=== PATIENT | male | born 1970 | race Asian ===

== ENCOUNTER 2021-02-16 09:16 | Inpatient (IN) | payer MEDICAID, OTHER ==
[~2021-02-16] VITALS: Ht 170.2 cm; Wt 49.5 kg
[2021-02-16] MEDS ORDERED: MORPHINE SULFATE 4 MG/ML CPJ (NOT FOR IM USE) IV STA (09:46)
[2021-02-16 10:02] LABS: HEMATOCRIT. 39.5 % (42.0-52.0); HEMOGLOBIN. 12.3 g/dL (14.0-18.0); MEAN CORPUSCULAR HEMOGLOBIN 24.6 pg (28.0-32.0); MEAN CORPUSCULAR VOLUME 78.7 fL (80.0-94.0); MEAN PLATELET VOLUME 7.9 fl (7.4-10.4); PLATELET 208 x1000/uL (130-400); RED BLOOD CELL COUNT 5.02 mill/uL (4.7-6.1); RED CELL DISTRIBUTION WIDTH 24.4 % (11.6-14.6)
[2021-02-16 10:07] LABS: CHLORIDE 98 mEq/L (98-107)
[2021-02-16 10:36] LABS: PLATELET ESTIMATE NORMAL
[2021-02-16] MEDS ORDERED: FUROSEMIDE 40MG/4ML VIAL IVP ONE (11:00)
[2021-02-16] MEDS ORDERED: MORPHINE SULFATE 2 MG/ML CPJ (NOT FOR IM USE) IV SCH (14:45)
[2021-02-16 16:09] VITALS: BP 116/85
[2021-02-16 16:36] VITALS: BP 116/85
[2021-02-16] MEDS ORDERED: ACETAMINOPHEN 325MG TABLET PO PRN (18:00)
[2021-02-16] MEDS ORDERED: LISINOPRIL 10MG TABLET PO SCH (18:00)
[2021-02-16] MEDS ORDERED: MORPHINE SULFATE 2 MG/ML CPJ (NOT FOR IM USE) IV PRN (18:00)
[2021-02-16] MEDS: ISOSORBIDE MONONITRATE 30MG TABLET SR 24HR PO SCH (18:10)
[2021-02-16] MEDS: ASPIRIN 81MG EC TABLET PO SCH (18:10)
[2021-02-16] MEDS: ENOXAPARIN 40MG/0.4ML SYR SUBCUT SCH (19:24)
[2021-02-16 19:53] VITALS: BP 116/91
[2021-02-16] MEDS: FAMOTIDINE 20MG TABLET PO SCH (21:27)
[2021-02-16] MEDS: CARVEDILOL 3.125 MG TABLET PO SCH (21:27)
[2021-02-16] MEDS: FUROSEMIDE 40MG/4ML VIAL IVP SCH (21:27)
[2021-02-16] MEDS: LISINOPRIL 10MG TABLET PO SCH (21:27)
[2021-02-17] VITALS: BP 114/77
[2021-02-17 04:00] VITALS: BP 101/65
[2021-02-17 08:00] VITALS: BP 114/82
[2021-02-17] MEDS: ENOXAPARIN 40MG/0.4ML SYR SUBCUT SCH (09:04)
[2021-02-17] MEDS: ASPIRIN 81MG EC TABLET PO SCH (09:05)
[2021-02-17] MEDS: CARVEDILOL 3.125 MG TABLET PO SCH ×2 (09:05→21:16)
[2021-02-17] MEDS: FUROSEMIDE 40MG/4ML VIAL IVP SCH ×2 (09:06→21:16)
[2021-02-17] MEDS: ISOSORBIDE MONONITRATE 30MG TABLET SR 24HR PO SCH (09:06)
[2021-02-17] MEDS: LISINOPRIL 10MG TABLET PO SCH (09:06)
[2021-02-17] MEDS: FAMOTIDINE 20MG TABLET PO SCH ×2 (09:08→21:16)
[2021-02-17] MEDS ORDERED: HYDROCODONE/ACETAMINOPHEN 5/325MG TABLET PO PRN (09:45)
[2021-02-17] MEDS ORDERED: ONDANSETRON HCL 4MG/2ML INJ IV PRN (09:45)
[2021-02-17] MEDS ORDERED: MAGNESIUM/ALUMINUM HYDROXIDE/SIMETHICONE 30ML UDC PO PRN (09:45)
[2021-02-17] MEDS ORDERED: CLONIDINE 0.1MG TABLET PO PRN (09:45)
[2021-02-17] MEDS ORDERED: DOCUSATE SODIUM 100MG CAPSULE PO PRN (09:45)
[2021-02-17] MEDS ORDERED: IPRATROPIUM/ALBUTEROL 0.5-3(2.5)MG/3ML NEB HHN PRN (09:45)
[2021-02-17] MEDS ORDERED: NALOXONE HCL 0.4MG/ML VIAL IV PRN (10:00)
[2021-02-17 12:21] VITALS: BP 109/80
[2021-02-17 15:01] LABS: *AMPHETAMINES SCREEN URINE NEGATIVE (NEGATIVE); *BARBITURATES SCREEN URINE NEGATIVE (NEGATIVE); *BENZODIAZEPINES SCREEN URINE NEGATIVE (NEGATIVE); *COCAINE SCREEN URINE NEGATIVE (NEGATIVE); METHADONE URINE SCREEN NEGATIVE (NEGATIVE); OPIATES URINE SCREEN NEGATIVE (NEGATIVE)
[2021-02-17 15:02] LABS: CANNABINOID URINE SCREEN NEGATIVE (NEGATIVE); PHENCYCLIDINE URINE SCREEN NEGATIVE (NEGATIVE)
[2021-02-17 16:35] VITALS: BP 133/97
[2021-02-17 20:00] VITALS: BP 114/57
[2021-02-18] VITALS: BP 111/80
[2021-02-18 04:00] VITALS: BP 97/57
[2021-02-18 05:02] LABS: BASOPHILS % 0.9 % (0.0-2.0); EOSINOPHILS % 0.1 % (0.0-5.0); HEMATOCRIT. 37.2 % (42.0-52.0); LYMPHOCYTES % 20.4 % (20.0-50.0); MEAN CORPUSCULAR HEMOGLOBIN 24.9 pg (28.0-32.0); MEAN CORPUSCULAR VOLUME 77.6 fL (80.0-94.0); MEAN PLATELET VOLUME 8.8 fl (7.4-10.4); MONOCYTES % 6.7 % (2.0-8.0); NEUTROPHILS % 71.9 % (40.0-76.0); PLATELET 206 x1000/uL (130-400); RED CELL DISTRIBUTION WIDTH 24.9 % (11.6-14.6)
[2021-02-18 05:09] LABS: CHLORIDE 101 mEq/L (98-107)
[2021-02-18 05:15] LABS: PHOSPHORUS 2.8 mg/dL (2.5-4.9)
[2021-02-18 05:16] LABS: LDL CHOLESTEROL 65 mg/dL (5-100)
[2021-02-18 05:17] LABS: HDL CHOLESTEROL 14 mg/dL (40-59)
[2021-02-18 05:18] LABS: T4 FREE 1.37 ng/dL (0.76-1.46)
[2021-02-18 08:00] VITALS: BP 111/75
[2021-02-18] MEDS: FUROSEMIDE 40MG/4ML VIAL IVP SCH ×2 (08:54→21:11)
[2021-02-18] MEDS: FAMOTIDINE 20MG TABLET PO SCH ×2 (08:55→21:12)
[2021-02-18] MEDS: ISOSORBIDE MONONITRATE 30MG TABLET SR 24HR PO SCH (08:55)
[2021-02-18] MEDS: CARVEDILOL 3.125 MG TABLET PO SCH (08:55)
[2021-02-18] MEDS: ASPIRIN 81MG EC TABLET PO SCH (08:56)
[2021-02-18] MEDS: LISINOPRIL 10MG TABLET PO SCH (09:00)
[2021-02-18] MEDS: ENOXAPARIN 40MG/0.4ML SYR SUBCUT SCH (09:06)
[2021-02-18 12:00] VITALS: BP 122/89
[2021-02-18 16:00] VITALS: BP 112/73
[2021-02-18 20:00] VITALS: BP 116/83
[2021-02-18] MEDS: LORAZEPAM 1MG TABLET PO PRN (20:02)
[2021-02-18] MEDS: HYDRALAZINE HCL 25MG TABLET PO SCH (21:11)
[2021-02-18] MEDS: CARVEDILOL 6.25 MG TABLET PO SCH (21:12)
[2021-02-19] VITALS: BP 101/78
[2021-02-19 04:00] VITALS: BP 102/70
[2021-02-19] MEDS: LORAZEPAM 1MG TABLET PO PRN (05:25)
[2021-02-19 08:00] VITALS: BP 101/70
[2021-02-19 08:55] LABS: BASOPHILS % 3.4 % (0.0-2.0); EOSINOPHILS % 0.5 % (0.0-5.0); HEMATOCRIT. 37.5 % (42.0-52.0); LYMPHOCYTES % 19.5 % (20.0-50.0); MEAN CORPUSCULAR HEMOGLOBIN 24.6 pg (28.0-32.0); MEAN CORPUSCULAR VOLUME 77.1 fL (80.0-94.0); MEAN PLATELET VOLUME 7.7 fl (7.4-10.4); MONOCYTES % 9.3 % (2.0-8.0); NEUTROPHILS % 67.3 % (40.0-76.0); PLATELET 208 x1000/uL (130-400); RED BLOOD CELL COUNT 4.87 mill/uL (4.7-6.1); RED CELL DISTRIBUTION WIDTH 24.8 % (11.6-14.6)
[2021-02-19] MEDS: ISOSORBIDE MONONITRATE 30MG TABLET SR 24HR PO SCH (09:00)
[2021-02-19] MEDS: CARVEDILOL 6.25 MG TABLET PO SCH (09:00)
[2021-02-19] MEDS: HYDRALAZINE HCL 25MG TABLET PO SCH (09:00)
[2021-02-19] MEDS: ASPIRIN 81MG EC TABLET PO SCH (09:08)
[2021-02-19] MEDS: FUROSEMIDE 40MG/4ML VIAL IVP SCH (09:08)
[2021-02-19] MEDS: ENOXAPARIN 40MG/0.4ML SYR SUBCUT SCH (09:08)
[2021-02-19] MEDS: FAMOTIDINE 20MG TABLET PO SCH (09:08)
== END 2021-02-19 12:00 | disposition left against medical advice (07) | DRG 194 ==
LOC: ER 09:16 → 6WST 13:57 → ENRESERV 14:55
PROVIDERS: ADMIT Internal Medicine; ATTEND Internal Medicine
DX: I50.9 Heart failure, unspecified (principal); I27.20 Pulmonary hypertension, unspecified; E44.0 Moderate protein-calorie malnutrition; I42.9 Cardiomyopathy, unspecified; E87.1 Hypo-osmolality and hyponatremia; R16.2 Hepatomegaly with splenomegaly, not elsewhere classified; F12.90 Cannabis use, unspecified, uncomplicated; F41.9 Anxiety disorder, unspecified; Z91.19 Patient's noncompliance with other medical treatment and regimen; I34.0 Nonrheumatic mitral (valve) insufficiency; Z87.891 Personal history of nicotine dependence; K76.9 Liver disease, unspecified; Z68.1 Body mass index [BMI] 19.9 or less, adult; Z53.29 Procedure and treatment not carried out because of patient's decision for other reasons; R79.89 Other specified abnormal findings of blood chemistry; R07.89 Other chest pain
CPT/HCPCS: 36415; 71045; 76700; 80048; 80053; 80061; 80076; 80305; 82140; 83735; 83880; 84100; 84439; 84443; 84484; 85025; 93005; 93306; 93970; 99285; C1893; J1650; J1940; J2270